=== PATIENT | female | born 2000 | race African-American/Black ===

== ENCOUNTER → 2021-07-04 | Outpatient (REF) | LOC: M LABSMTC 10:08 | PROVIDERS: ATTEND Pediatrics | DX: Z11.52 Encounter for screening for COVID-19 (principal) ==

== ENCOUNTER → 2021-09-15 | Outpatient (CLI) | payer OTHER | LOC: M RAD 07:21 | PROVIDERS: ATTEND Nurse Practitioner Family | DX: M54.14 Radiculopathy, thoracic region (principal) ==